=== PATIENT | female | born 1955 | race African-American/Black ===

== ENCOUNTER 2016-08-24 08:44 | Emergency (ER) | payer OTHER ==
--- NOTE | 2016-08-24 08:53 | PDOC ---
History of Present Illness - General Stated Complaint: Shortness of Breath Time Seen by Provider: 08/24/16 08:52 History Source: Patient Exam Limitations: No Limitations - History of Present Illness Initial Comments: CHIEF COMPLAINT: 61 y/o afebrile female with PMH HTN and GERD c/o abdominal pain and difficulty breathing since yesterday. HISTORY OF PRESENT ILLNESS: The patient states she has had very bad reflux in the past and is not supposed to take Motrin. 2 evenings ago she was having pain in her shoulder so she took Motrin and Excedrin because she has no Tylenol left. She states yesterday morning she woke up with abdominal burning, nausea, belching and difficulty breathing. She states those symptoms have continued and that's why she's here today. She denies f/c, PAREKH, neck pain, v/d, back pain , hematuria, dysuria. PCP is Dr. Celso Hampton Vital signs on arrival are within normal limits. REVIEW OF SYSTEMS: GENERAL/CONSTITUTIONAL: No fever/chills. No weakness. No weight change. HEAD, EYES, EARS, NOSE AND THROAT: No change in vision. No ear pain or discharge. No sore throat. CARDIOVASCULAR: +middle chest discomfort. +SOB RESPIRATORY: No cough, wheezing, or hemoptysis. GASTROINTESTINAL: +abdominal burning, nausea and belching. No vomiting or diarrhea. GENITOURINARY: No dysuria, frequency, or change in urination. MUSCULOSKELETAL: No joint or muscle swelling or pain. No neck or back pain. SKIN: No rash or easy bruising. NEUROLOGIC: No headache, vertigo, loss of consciousness, or loss of sensation. PHYSICAL EXAM: GENERAL: The patient is awake, alert, and fully oriented, in no acute distress. She is well appearing and speaks in full sentences without difficulty. HEAD: Normal with no signs of trauma. ENT: Pupils equal, round and reactive to light, extraocular movements intact, sclera anicteric, conjunctiva clear. Neck supple. LUNGS: Clear to auscultation bilaterally. Normal excursion. No respiratory distress or use of accessory muscles. CHEST WALL: No palpable chest wall pain. CV: RRR, S1/S2, no MRG. Cap refill < 2 sec. ABDOMEN: TTP of epigastric region. + donohue's sign. No rebound, guarding or rigidity. EXTREMITIES: Normal range of motion, no edema. NEUROLOGICAL: Normal speech, normal gait. CN II-XII grossly intact. PSYCH: Normal mood, normal affect. SKIN: Warm, dry, normal turgor, no rashes or lesions noted. Past History - Past Medical History Allergies/Adverse Reactions: Allergies Allergy/AdvReac Type Severity Reaction Status Date / Time ibuprofen [From Motrin] Allergy Unknown Verified 08/24/16 08:53 naproxen sodium [From Aleve] Allergy Unknown Verified 08/24/16 08:53 Penicillins Allergy Unknown Verified 08/24/16 08:53 Sulfa (Sulfonamide Allergy Unknown Verified 08/24/16 08:53 Antibiotics) aspirin AdvReac Verified 08/24/16 08:53 Home Medications: Ambulatory Orders Amlodipine Besylate [Norvasc -] 5 mg PO DAILY 06/26/13 Hydrochlorothiazide [Hctz -] 25 mg PO DAILY 09/21/13 Oxycodone HCl/Acetaminophen [Endocet 7.5-325 mg Tablet] 1 each PO PRN PRN Pantoprazole Sodium [Protonix -] 40 mg PO DAILY #7 tablet.ec 08/24/16 HTN: Yes Suicide Attempt (Hx): No - Immunization History Immunization Up to Date: Yes - Psycho/Social/Smoking Cessation Hx Anxiety: No Suicidal Ideation: No Smoking Status: No Smoking History: Never smoked Have you smoked in the past 12 months: No Number of Cigarettes Smoked Daily: 0 Hx Alcohol Use: Yes (OCCASIONALLY) Drug/Substance Use Hx: No Substance Use Type: None Heart Score/ECG Review - ECG Intrepretation Comment:: Twelve-lead EKG was performed and reviewed by Dr. Brown. There is normal sinus rhythm with a normal rate. The axis is normal. The intervals are normal. T wave abnormality, consider anterior ischemia. Impression: Abnormal twelve-lead EKG ED Treatment Course - LABORATORY CBC & Chemistry Diagram: 08/24/16 10:30 08/24/16 11:05 Medical Decision Making - Medical Decision Making A/P: 61 y/o female with signs of reflux. However, given her age, will r/o cardiac origin. Plan is as follows: 1. EKG 2. CXR 3. Labs 4. IV fluids 5. IV zofran, pepcid 6. Gallbladder ultrasound AST/ALT elevated Pt states she does feel mildly better. Ordered IV protonix and tylenol Gallbladder Ultrasound IMPRESSION: Small gallbladder stone without cholecystitis. Spoke with Dr. Brown regarding the patient and he is in agreement with discharge to home. The patient admits she feels much better. Gave her all of her results. Suggested she f/u with a [facility] for a stress test and will send rx for 1 week of protonix. Also suggested GERD diet and avoiding NSAIDs. The patient was instructed to return to the ER with any worsening or concerning symptoms. The patient verbalizes understanding of all instructions, has no further questions and is awaiting discharge. \ *DC/Admit/Observation/Transfer Diagnosis at time of Disposition: Epigastric pain GERD (gastroesophageal reflux disease) Qualifiers: Esophagitis presence: with esophagitis Qualified Code(s): K21.0 - Gastro- esophageal reflux disease with esophagitis - Discharge Dispostion Disposition: HOME Condition at time of disposition: Improved - Prescriptions Prescriptions: Pantoprazole Sodium [Protonix -] 40 mg PO DAILY #7 tablet.ec - Referrals Referrals: Celso Hampton MD [Primary Care Provider] - Nick Way MD [Staff Physician] - Call tomorrow Raulito Grullon MD [Staff Physician] - Call tomorrow - Patient Instructions Printed Discharge Instructions: GERD Diet, DI for Gastroesophageal Reflux Disease (GERD), How to Avoid Taking NSAID-Containing Products Additional Instructions: Discharge Instructions: -A prescription was sent to your pharmacy; please take as prescribed for 7 days -Take over the counter pepcid or zantac daily as well for the next 7 days and keep some in your medicine cabinet if needed for the future -Please follow GERD diet suggestions in your discharge paperwork -Please avoid taking any NSAID containing products, including Excedrin, Motrin and Ibuprofen, as these medications can cause your abdominal pain -Please make follow up appointments to see Dr. Way for a stress test and Dr. Grullon for a GI consult -Return to the ER immediately with any worsening or concerning symptoms
[2016-08-24] MEDS ORDERED: ONDANSETRON 4 MG/2 ML VIAL IVPUSH ONE (09:03)
[2016-08-24] MEDS ORDERED: FAMOTIDINE 20 MG/50 ML IVPB 50 ML IVPB ONE ×2 (09:03→09:40)
[2016-08-24] MEDS ORDERED: SODIUM CHLORIDE 1,000 ML IV STA (09:03)
[2016-08-24 09:07] VITALS: TEMP 97.9; BMI 24.0
[2016-08-24] MEDS ORDERED: ONDANSETRON 4 MG/2 ML VIAL ONE (09:40)
[2016-08-24 10:55] LABS: BASOPHIL 0.5 % (0-2.0); EOSINOPHIL 0.3 % (0-4.5); MCH 30.1 pg (25.7-33.7); MCHC 32.9 g/dl (32.0-36.0); MEAN CELL VOLUME 91.5 fl (80-96); MEAN PLT VOLUME 8.5 fl (7.5-11.1); NEUTROPHILS 72.9 % (42.8-82.8); PLATELET COUNT 304 K/MM3 (134-434); RDW 13.5 % (11.6-15.6); WHITE BLOOD COUNT 9.1 K/mm3 (4.0-10.0)
[2016-08-24] MEDS ORDERED: ACETAMINOPHEN 1000 MG/100 ML VIAL (NON FORMULARY) IVPB ONE (11:16)
[2016-08-24] MEDS ORDERED: PANTOPRAZOLE SODIUM 40 MG in SODIUM CHLORIDE 100 ML IVPB ONE (11:16)
[2016-08-24 11:46] LABS: ALBUMIN 4.1 g/dl (3.4-5.0); ANION GAP 17 (8-16); BILIRUBIN,TOTAL 0.4 mg/dL (0.2-1.0); CALCIUM 9.7 mg/dL (8.5-10.1); CO2 23 mmol/L (21-32); CREATININE 0.7 mg/dL (0.55-1.02); GLUCOSE,RANDOM 90 mg/dL (74-106); SGOT/AST 62 U/L (15-37); SGPT/ALT 78 U/L (12-78); TOT PROT 8.2 g/dl (6.4-8.2)
[2016-08-24 11:49] LABS: ALK PHOS 163 U/L (45-117); TROPONIN I < 0.02 ng/ml (0.00-0.05)
[2016-08-24] MEDS ORDERED: PANTOPRAZOLE SODIUM 100 ML IVPB ONE (12:57)
[2016-08-24] MEDS ORDERED: ACETAMINOPHEN INJECTION 100 ML IVPB ONE (12:57)
--- NOTE | 2016-08-24 14:43 | EKG ---
Test Reason : Blood Pressure : / mmHG Vent. Rate : 071 BPM Atrial Rate : 071 BPM P-R Int : 150 ms QRS Dur : 082 ms QT Int : 446 ms P-R-T Axes : 054 039 048 degrees QTc Int : 484 ms NORMAL SINUS RHYTHM T WAVE ABNORMALITY, CONSIDER ANTERIOR ISCHEMIA PROLONGED QT ABNORMAL ECG WHEN COMPARED WITH ECG OF 06-OCT-2014 00:39, NO SIGNIFICANT CHANGE WAS FOUND Confirmed by JILL SHELL MD ([id number]) on 08/24/2016 2:43:04 PM Referred By: Confirmed By:JILL SHELL MD
--- NOTE | 2016-08-24 15:23 | PDOC ---
*Physical Exam - Vital Signs Last Vital Signs Temp Pulse Resp BP Pulse Ox 97.9 F 81 18 149/89 100 08/24/16 08:57 08/24/16 08:57 08/24/16 08:57 08/24/16 08:57 08/24/16 08:57 Heart Score/ECG Review - History History: Slightly suspicious - Electrocardiogram EKG: Normal - Age Age: 45-65 - Risk Factors Based on the list above the patient has:: 1-2 risk factors - Troponin Troponin: </= normal limit - Score Heart Score - Total: 2 ED Treatment Course - LABORATORY CBC & Chemistry Diagram: 08/24/16 10:30 08/24/16 11:05 - ADDITIONAL ORDERS Additional order review: Laboratory Results 08/24/16 08/24/16 11:05 09:52 Sodium 142 Cancelled Potassium 3.7 Cancelled Chloride 102 Cancelled Carbon Dioxide 23 Cancelled Anion Gap 17 H Cancelled BUN 15 Cancelled Creatinine 0.7 Cancelled Creat Clearance w eGFR > 60 Cancelled Random Glucose 90 Cancelled Calcium 9.7 Cancelled Total Bilirubin 0.4 Cancelled AST 62 H Cancelled ALT 78 Cancelled Alkaline Phosphatase 163 H Cancelled Creatine Kinase 87 Cancelled Troponin I < 0.02 Cancelled Total Protein 8.2 Cancelled Albumin 4.1 Cancelled Lipase 119 Cancelled 08/24/16 08/24/16 10:30 09:52 RBC 4.11 Cancelled MCV 91.5 Cancelled MCHC 32.9 Cancelled RDW 13.5 Cancelled MPV 8.5 Cancelled Neutrophils % 72.9 Cancelled Lymphocytes % 20.2 Cancelled Monocytes % 6.1 Cancelled Eosinophils % 0.3 Cancelled Basophils % 0.5 Cancelled - Medications Given in the ED: ED Medications Discontinued Medications Generic Name Dose Route Start Last Admin Trade Name Freq PRN Reason Stop Dose Admin Acetaminophen 1,000 mg 08/24/16 11:16 08/24/16 13:03 Ofirmev Injection - IVPB 08/24/16 11:17 1,000 mg ONCE ONE Administration Famotidine/Sodium Chloride 50 mls @ 100 mls/hr 08/24/16 09:03 08/24/16 10:05 Pepcid 20 Mg Premixed Ivpb - IVPB 08/24/16 09:32 100 mls/hr ONCE ONE Administration Sodium Chloride 1,000 mls @ 1,000 mls/hr 08/24/16 09:03 08/24/16 10:05 Normal Saline - IV 08/24/16 10:02 1,000 mls/hr ASDIR STA Administration Ondansetron HCl 4 mg 08/24/16 09:03 08/24/16 10:04 Zofran Injection IVPUSH 08/24/16 09:04 4 mg ONCE ONE Administration Medical Decision Making - Medical Decision Making 08/24/16 15:18 Patient seen and evaluated with the nurse practitioner. I agree with the overall evaluation, assessment, and management with the following summary of visit: 08/24/16 15:19 61-year-old female with history of hypertension and GERD presents with epigastric burning//dyspepsia and nausea. sxs are nonexertional, no sob. sxs more consistent with prior GERD sxs. HEART score 2, EKG nonischemic, trop negative, cxr and RUQ sono normal. Feels better after GI cocktail, understands strict return precautions and will obtain outpt stress test with PMD. *DC/Admit/Observation/Transfer Diagnosis at time of Disposition: Epigastric pain GERD (gastroesophageal reflux disease) Qualifiers: Esophagitis presence: with esophagitis Qualified Code(s): K21.0 - Gastro- esophageal reflux disease with esophagitis - Discharge Dispostion Disposition: HOME Condition at time of disposition: Improved - Prescriptions Prescriptions: Pantoprazole Sodium [Protonix -] 40 mg PO DAILY #7 tablet.ec - Referrals Referrals: Nick Way MD [Staff Physician] - Call tomorrow Celso Hampton MD [Primary Care Provider] - Raulito Grullon MD [Staff Physician] - Call tomorrow - Patient Instructions Printed Discharge Instructions: DI for Gastroesophageal Reflux Disease (GERD), GERD Diet, How to Avoid Taking NSAID-Containing Products Additional Instructions: Discharge Instructions: -A prescription was sent to your pharmacy; please take as prescribed for 7 days -Take over the counter pepcid or zantac daily as well for the next 7 days and keep some in your medicine cabinet if needed for the future -Please follow GERD diet suggestions in your discharge paperwork -Please avoid taking any NSAID containing products, including Excedrin, Motrin and Ibuprofen, as these medications can cause your abdominal pain -Please make follow up appointments to see Dr. Way for a stress test and Dr. Grullon for a GI consult -Return to the ER immediately with any worsening or concerning symptoms
[2016-08-24 16:12] VITALS: BP 136/70; PULSE 75
== END 2016-08-24 16:12 | disposition home or self-care (01) ==
LOC: JER 08:44
PROC: 3E033NZ Introduction of Analgesics, Hypnotics, Sedatives into Peripheral Vein, Percutaneous Approach (ICD-10-PCS; principal; 2016-08-24)
PROC: 3E033GC Introduction of Other Therapeutic Substance into Peripheral Vein, Percutaneous Approach (ICD-10-PCS; 2016-08-24)
PROC: 3E0337Z Introduction of Electrolytic and Water Balance Substance into Peripheral Vein, Percutaneous Approach (ICD-10-PCS; 2016-08-24)
DX: R10.13 Epigastric pain (principal); K21.0 Gastro-esophageal reflux disease with esophagitis
CPT/HCPCS: 36415; 71020-TC; 76705-TC; 80053; 82550; 83690; 84484; 85025; 93005; 93010; 96361; 96365; 96367; 96375; 99285-25

== ENCOUNTER 2020-12-26 14:02 | Emergency (ER) | payer OTHER ==
[2020-12-26 14:38] VITALS: TEMP 98.7; BMI 29.8
[2020-12-26 14:52] VITALS: PULSE 71
[2020-12-26] MEDS ORDERED: SODIUM CHLORIDE 0.9% 500 ML INFUS.BAG IV ONE ×2 (15:23→18:11)
[2020-12-26 17:20] LABS: BASO % 0.7 % (0-2.0); HEMATOCRIT 37.6 % (32.4-45.2); HEMOGLOBIN 12.6 GM/dL (10.7-15.3); LYMPH % 40.1 % (8-40); MCHC 33.6 g/dl (32.0-36.0); MEAN CELL VOLUME 89.1 fl (80-96); MEAN PLT VOLUME 7.6 fl (7.5-11.1); NEUT % 50.2 % (42.8-82.8); PLATELET COUNT 380 10^3/uL (134-434); RBC 4.22 M/mm3 (3.60-5.2); RDW 14.5 % (11.6-15.6); WHITE BLOOD COUNT 7.1 K/mm3 (4.0-10.0)
[2020-12-26 17:42] LABS: CHLORIDE 105 mmol/L (98-107); SODIUM 138 mmol/L (136-145)
[2020-12-26 17:44] LABS: CALCIUM 9.4 mg/dL (8.5-10.1)
[2020-12-26 17:45] LABS: ALBUMIN 4.2 g/dl (3.4-5.0); ANION GAP 10 MMOL/L (8-16); CO2 23 mmol/L (21-32); GLUCOSE,RANDOM 102 mg/dL (74-106)
[2020-12-26 17:48] LABS: CREATININE 2.1 mg/dL (0.55-1.3); SGOT/AST 20 U/L (15-37); SGPT/ALT 23 U/L (13-61)
[2020-12-26 17:49] LABS: BILIRUBIN,TOTAL 0.2 mg/dL (0.2-1); TOT PROT 8.4 g/dl (6.4-8.2)
[2020-12-26 17:51] LABS: ALK PHOS 181 U/L (45-117)
[2020-12-26 18:41] LABS: URINE APPEARANCE CLOUDY; URINE BILIRUBIN NEGATIVE (NEGATIVE); URINE COLOR YELLOW; URINE GLUCOSE (UA) NEGATIVE (NEGATIVE); URINE KETONE TRACE (NEGATIVE); URINE LEUK ESTERASE 2+ (NEGATIVE); URINE NITRITE NEGATIVE (NEGATIVE); URINE PROTEIN 1+ (NEGATIVE)
[2020-12-26 19:03] VITALS: BP 96/61
[2020-12-26 19:15] LABS: URINE RBC 15.8 /uL (0-23.9)
[2020-12-26 19:16] LABS: HYALINE CASTS 22.61 /uL (0-3.1); URINE BACTERIA 1242.2 /uL (0-1359); URINE WBC 95.2 /uL (0-25.8)
== END 2020-12-26 19:55 | disposition left against medical advice (07) ==
LOC: JER 14:02
DX: I95.9 Hypotension, unspecified (principal); N17.9 Acute kidney failure, unspecified
CPT/HCPCS: 36415; 71045-TC-FY; 80053; 81003; 82550; 84484; 85025; 87086; 87186; 93005; 93010; 99284-25; C9803; U0003; U0005

== ENCOUNTER 2022-07-18 14:40 | Emergency (ER) | payer OTHER ==
[2022-07-18 15:07] VITALS: BP 115/75; PULSE 104; RESP 20; TEMP 102.8; BMI 29.5
[2022-07-18] MEDS ORDERED: ACETAMINOPHEN 500 MG TABLET (FP) PO ONE (17:06)
[2022-07-18] MEDS ORDERED: ACETAMINOPHEN 325 MG TABLET (FP) ONE (17:28)
== END 2022-07-18 19:15 | disposition home or self-care (01) ==
LOC: JERFT 14:40
DX: R05.1 Acute cough (principal); R50.9 Fever, unspecified; R09.81 Nasal congestion; J34.89 Other specified disorders of nose and nasal sinuses; R09.3 Abnormal sputum; Z20.822 Contact with and (suspected) exposure to COVID-19
CPT/HCPCS: 0241U-QW; 71046-TC-FY; 99284-25